=== PATIENT | male | born 1955 | race Caucasian/White ===

== ENCOUNTER → 2016-08-11 | Outpatient (CLI) | payer OTHER ==
[~2016-08-11] MED LIST: /CLON1TA; /ESOM40CA; ACTO45TA; ASPI81TA85 PO; ATOR40TA PO; CLON-412 PO; CLON0.5T PO; FARX1TAB2 PO; GABA600T PO; GLUC1000; HYDROCODONE; JANU100T PO; LIDO5DIS; LIDO5DIS36 TD; LOTR10CA2 PO; LOTREL; METF1000 PO; NEUR600T; NEXI40GR PO; SOMA350T; SOMA350T PO; VICO5TAB16 PO; ZOCO20TA; ZOCO40TA; ZOLO50TA; ZOLO50TA PO
[2016-08-11 10:15] LABS: INR 0.98
[2016-08-11 10:16] LABS: MEAN CORPUSCULAR HEMOGLOBIN 29.1 pg (27.0-33.0); MEAN CORPUSCULAR HGB CONC 33.8 g/dl (32.0-36.5); WHITE BLOOD COUNT 3.9 K/mm3 (4.0-10.0)
--- NOTE | 2016-08-11 10:18 | REP ---
Clinical: Hypertension with high risk factors. Technique: PA and lateral. Comparison: 12/17/2012. Findings: Mediastinum and cardiac silhouette are within normal limits and stable. Lung padilla demonstrate mild chronic stable changes without acute consolidation, effusion, or pneumothorax. Skeletal structures are intact. Impression: Stable chest x-ray. No acute cardiopulmonary process appreciated. Signed by Channing Fu MD 08/11/2016 10:09 A
[2016-08-11 10:38] LABS: ALBUMIN 4.4 GM/DL (3.2-5.2); ALBUMIN/GLOBULIN RATIO 1.63 (1.00-1.93); ALKALINE PHOSPHATASE 81 U/L (45-117); ALT/SGPT 33 U/L (12-78); ANION GAP 5 MEQ/L (8-16); AST/SGOT 18 U/L (15-37); BILIRUBIN,TOTAL 0.4 MG/DL (0.2-1.0); BLOOD UREA NITROGEN 21 MG/DL (7-18); CALCIUM LEVEL 9.4 MG/DL (8.5-10.1); CARBON DIOXIDE LEVEL 29 MEQ/L (21-32); CHLORIDE LEVEL 106 MEQ/L (98-107); CREATININE FOR GFR 0.99 MG/DL (0.70-1.30); GLOMERULAR FILTRATION RATE > 60.0 (>56); GLUCOSE, FASTING 87 MG/DL (70-105); POTASSIUM SERUM 4.4 MEQ/L (3.5-5.1); SODIUM LEVEL 140 MEQ/L (136-145); TOTAL PROTEIN 7.1 GM/DL (6.4-8.2)
--- NOTE | 2016-08-11 19:56 | ECGEPIP ---
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 Electronically Signed On 08-11-2016 19:55:45 EDT by Tony Kenney
--- NOTE | 2016-08-15 19:10 | HPE ---
DATE OF PLANNED ADMISSION: 08/17/2016 ATTENDING PHYSICIAN: Samuel Reinoso MD CHIEF COMPLAINT: Right hip pain and stiffness. HISTORY: Michael is a pleasant 61-year-old male with progressively worsening right hip pain and stiffness. He has failed to improve with conservative management. He has elected for surgery for his continued symptoms with weightbearing activities and activities of daily living. He has consented for a right total hip arthroplasty by Dr. Reinoso. Medical optimization pending with Dr. Jimenez and is not present for review today. CURRENT MEDICATIONS: - atorvastatin 40 mg daily - baby aspirin daily - clonazepam 0.5 mg at bedtime - clonidine 0.1 mg twice daily - Farxiga 5 mg one by mouth every morning - Flonase 2 sprays 2 sprays in each nostril daily - gabapentin 600 mg 2 tablets three times daily - Januvia 100 mg daily - Lotrel 10/40 mg daily - Lidoderm patches 5%, apply 1 patch per 12 hours then leave off for 12 hours as needed - metformin 1000 mg twice daily - Nexium 40 mg daily - soma 350 mg twice daily as needed - Vicodin 5/300 mg every 6 hours as needed for pain - Zoloft 50 mg daily ALLERGIES: BACLOFEN, LYRICA, PENICILLIN, KEFLEX. MEDICAL HISTORY: Hyperlipidemia. Hypertension. Diabetes. Gastroesophageal reflux. Chronic neck pain. SURGICAL HISTORY: Neck fusion. Shoulder surgery. SOCIAL HISTORY: The patient denies tobacco use. He denies alcohol use. REVIEW OF SYSTEMS: The patient denies fever, chills, nausea, vomiting or diarrhea. He denies chest pain, shortness of breath, cough or headache. He denies any recent upper respiratory or urinary tract infection symptoms. He does have persistent right hip pain with weightbearing activities. PHYSICAL EXAMINATION: Well-nourished, well-developed male in no apparent distress. Musculoskeletal: Inspection of the right hip reveals no gross abnormalities. The skin is intact. The patient has essentially normal motion of the hip with 5 out of 5 strength of the right lower extremity. There is hip irritability elicited with range of motion. His calf is soft, nontender to palpation with no palpable cords noted. His pedal pulses are palpable. Neck: Supple without lymphadenopathy or jugular venous distention. Lungs: Clear to auscultation bilaterally. Heart: Regular rate and rhythm. Abdomen: Bowel sounds are present. Abdomen is soft and nontender to palpation. Vital signs: Height 73 inches, weight 244 pounds, temperature 98.7, blood pressure 133/93. Heart rate 81, respirations 16. LABORATORY DATA: Chest x-ray: Stable chest x-ray. No acute cardiopulmonary process appreciated. EKG: Sinus rhythm. Urinalysis: Positive for only 3+ glucose. Urine culture shows no growth. Comprehensive metabolic profile: Fasting glucose 84, BUN elevated at 21, creatinine for GFR 0.99. GFR greater than 60. Sodium 140, potassium 4.4, chloride 106, carbon dioxide 29, anion gap decreased at 5, calcium 9.4, AST 18, ALT 81, total bilirubin 0.4, total protein 7.1, albumin 4.4, albumin globulin ratio 1.63. Complete blood count: WBC decreased at 3.9, RBC 5.11, hemoglobin 14.9, hematocrit 44, platelets 191, erythrocyte sedimentation rate 3, prothrombin time 13.1, INR 0.98. Nasal and sinus culture shows normal jojo. DIAGNOSIS: Symptomatic osteoarthritis of the right hip with x-rays notable for end-stage degenerative changes. PLAN: The patient has consented for a right total hip arthroplasty by Dr. Reinoso. [facility]ALTHLamber[facility]
== END ==
LOC: M ADMPAT 08:58
PROVIDERS: ATTEND Orthopaedic Surgery
DX: M16.11 Unilateral primary osteoarthritis, right hip (principal)

== ENCOUNTER 2016-08-17 10:36 | Inpatient (IN) | payer OTHER ==
[2016-08-11 09:50] VITALS: BP 132/74
[~2016-08-17] VITALS: Ht 185.4 cm; Wt 108.9 kg
[~2016-08-17 10:36] MED LIST changes: +CLINDAMYCIN INJ 900MG/6ML VIAL As Ordered ONE
[2016-08-17] MEDS ORDERED: LR 1,000 ML IV SCH ×2 (10:45→15:30)
[2016-08-17] MEDS ORDERED: VANCOMYCIN HCL 1,000 MG, VIAL MATE ADAPTER 1 EACH in D5W 250 ML IV ONE ×2 (11:00→23:00)
[2016-08-17] MEDS ORDERED: LR 1,000 ML IV ONE (11:00)
[2016-08-17] MEDS ORDERED: ACETAMINOPHEN 500 MG TAB PO ONE (11:00)
[2016-08-17] MEDS ORDERED: LIDOCAINE 2% INJ 100 MG/5 ML SDV (FOR ANES.) As Ordered ONE (13:19)
[2016-08-17] MEDS ORDERED: fentaNYL 100 MCG/2 ML INJECTION (J3010) As Ordered ONE (13:19)
[2016-08-17] MEDS ORDERED: MIDAZOLAM INJ 2 MG/2 ML VIAL (J2250) As Ordered ONE (13:19)
[2016-08-17] MEDS ORDERED: ONDANSETRON 4MG/2ML VIAL (J2405) As Ordered ONE ×2 (13:19→15:16)
[2016-08-17] MEDS ORDERED: PROPOFOL 200 MG/20 ML VIAL As Ordered ONE ×2 (13:19→14:58)
[2016-08-17] MEDS ORDERED: dexameTHASONE 4 MG/ML 1ML VIAL (J1100) As Ordered ONE (13:19)
[2016-08-17] MEDS ORDERED: HYDROmorphone HCL 2 MG/ML 1ML VIAL (J1170) As Ordered ONE (13:22)
[2016-08-17] MEDS ORDERED: GLYCOPYRROLATE INJ 0.2 MG/ML 2 ML VIAL As Ordered ONE (13:30)
[2016-08-17] MEDS ORDERED: NEOSTIGMINE 1MG/ML 5 ML SYRINGE (J2710) As Ordered ONE (13:30)
[2016-08-17] MEDS ORDERED: MORPHINE 1MG/ML IN 0.9% NACL 100ML IV BAG As Ordered ONE (15:26)
[2016-08-17] MEDS ORDERED: MEPERIDINE INJ 25 MG/ML VIAL (J2175) IV PRN (15:30)
[2016-08-17] MEDS ORDERED: NALOXONE INJ 0.4 MG/1 ML VIAL (J2310) IV PRN (15:30)
[2016-08-17] MEDS ORDERED: ONDANSETRON 4MG/2ML VIAL (J2405) IV PRN ×2 (15:30)
[2016-08-17] MEDS ORDERED: MORPHINE 1MG/ML IN 0.9% NACL 100ML IV BAG IV PRN (15:30)
[2016-08-17] MEDS ORDERED: METOCLOPRAMIDE INJ 10MG/2ML VIAL (J2765) IV PRN (15:30)
[2016-08-17] MEDS ORDERED: diphenhydrAMINE INJ 50MG/ML VIAL (J1200) IV PRN (15:30)
[2016-08-17] MEDS ORDERED: EPIDURAL/PCA KEYS XX PRN (15:30)
[2016-08-17] MEDS ORDERED: ACETAMINOPHEN TAB 650MG DOSE (2X325MG) PO PRN (15:30)
[2016-08-17] MEDS ORDERED: NALBUPHINE HCL 10 MG/ML AMP (J2300) IV PRN (15:30)
[2016-08-17] MEDS: fentaNYL 100 MCG/2 ML INJECTION (J3010) IV PRN ×8 (15:30→16:05)
[2016-08-17] MEDS ORDERED: PERCOCET 5MG/325MG TAB PO PRN (15:30)
[2016-08-17] MEDS ORDERED: FLEET ENEMA PR PRN (15:30)
[2016-08-17] MEDS ORDERED: GLUCOSE 4 GM CHEW TABLET PO PRN (16:15)
[2016-08-17] MEDS ORDERED: DEXTROSE 50% 50 ML SYRINGE IV PRN (16:15)
[2016-08-17] MEDS ORDERED: GLUCAGON FOR INJ 1 MG VIAL (J1610) SC PRN (16:15)
[2016-08-17] MEDS ORDERED: MEPERIDINE INJ 25 MG/ML VIAL (J2175) As Ordered ONE (16:31)
[2016-08-17 17:00] VITALS: BP 130/82
[2016-08-17] MEDS ORDERED: WARFARIN SOD 5 MG TAB PO SCH (17:00)
[2016-08-17 17:30] VITALS: BP 135/79
[2016-08-17] MEDS: HumaLOG INSULIN (NovoLOG) PER UNIT SC SCH ×2 (17:30→21:00)
[2016-08-17] MEDS: LR 1,000 ML IV SCH (18:02)
[2016-08-17 18:30] VITALS: BP 136/82
[2016-08-17 18:34] VITALS: O2SAT 99
--- NOTE | 2016-08-17 18:59 | CR.PDOC ---
[facility] Consultation Consultation HOSPITALIST CONSULT NOTE Date of consult: 08/17/2016 Referring Provider: Dr. Lund PCP: Dr. Jimenez Reason for Consult: For management of chronic medical issues HPI: 61-year-old male with diabetes mellitus type 2, hypertension, hyperlipidemia, GERD, chronic neck pain who underwent right total hip arthroplasty today with Dr. Lund. The patient is seen postoperatively in recovery. He is overall doing well, but he reports that he initially had some nausea, which was relieved with Zofran. He also states that initially he had a lot of pain from the surgery, but he is now on a MATERIAL MOVERS and is much more comfortable. He denies any chest pain or difficulty breathing. Past medical history: Diabetes mellitus type 2, hypertension, hyperlipidemia, GERD, chronic neck pain Past surgical history: neck fusion 3, shoulder surgery, wrist surgery, hernia repair 2, right total hip arthroplasty Family history: CAD, back trouble, diabetes mellitus, hypertension Social history: Patient denies ever having smoked cigarettes. He also does not drink. Allergies: Cephalosporins, penicillins, sulfa Review of systems: General: Negative for fever and chills Eyes: Negative for vision changes and ocular discharge ENT: Negative for sore throat and nose bleed Cardiovascular: Negative for chest pain and palpitations Respiratory: Negative for cough and shortness of breath GI: Positive for nausea, negative for vomiting, diarrhea, constipation Musculoskeletal: Positive for chronic neck and back pain Skin: Negative for rash Neuro: Negative for headache, dizziness, numbness, tingling Psych: Negative for depression and suicidal ideation Endocrine: Negative for polyuria : Negative for dysuria Heme: Negative for bleeding Home meds: See below Physical exam: Vital signs: Vital Signs Date Time Temp Pulse Resp B/P (MAP) Pulse Ox O2 Delivery O2 Flow Rate FiO2 08/17/16 18:34 99 Nasal Cannula 08/17/16 16:45 97.7 99 16 140/76 (97) 2 Gen.: awake, alert, no acute distress Eyes: Extraocular movements intact, normal sclera ENT: Moist mucous membranes Cardiovascular: RRR, no murmurs rubs or gallops Lungs: clear to auscultation bilaterally, no rales, rhonchi, or wheeze Abdomen: Soft, NT/ND, normal BS Extremities: Pedal pulses intact bilaterally Neuro: alert and oriented 3, normal speech, no focal deficits Psych: Normal mood with congruent affect Labs and radiology: Finger sticks are controlled Assessment and plan: 61-year-old male with diabetes mellitus type 2, hypertension, hyperlipidemia, GERD, chronic neck pain who underwent right total hip arthroplasty today with Dr. Lund. We've been consulted for medical management of chronic issues 1. Diabetes mellitus type 2: Holding patient's home metformin, Januvia, and fargixa. Sliding scale insulin while in-house. 2. Hypertension: Continue home clonidine and Lotrel. 3. Hyperlipidemia: Continue home statin. 4. Depression: Continue home Zoloft. 5. GERD: Continue home PPI. 6. Chronic neck pain: The patient is currently on a MATERIAL MOVERS postoperatively. I will defer all pain management to his primary orthopedic team. We are currently holding his home Soma and Lidoderm patch. 7. Osteoarthritis: Postoperative management as per his primary orthopedic team, including pain management. DVT prophylaxis: As per his surgical team; currently holding home aspirin given today's surgery Thank you for this consult. We will continue to follow along with you; Dr. Guerita Mane will assume coverage in the morning. Vital Signs/I&O Vital Signs Date Time Temp Pulse Resp B/P (MAP) Pulse Ox O2 Delivery O2 Flow Rate FiO2 08/17/16 18:34 99 Nasal Cannula 08/17/16 16:45 97.7 99 16 140/76 (97) 2 Laboratory Data Labs 24H Laboratory Tests 2 08/17/16 11:23: Bedside Glucose (Misc Panel) 113H 08/17/16 17:40: Bedside Glucose (Misc Panel) 134H CBC/BMP Laboratory Tests 08/17/16 11:03 Allergies Coded Allergies: Cephalosporins (Verified Allergy, Intermediate, HIVES, 06/24/12) Penicillins (Verified Allergy, Intermediate, HIVES, 06/24/12) Penicillins Cross Reactors (Verified Allergy, Intermediate, HIVES, 06/24/12) Sulfa Drugs (Verified Allergy, Unknown, 06/24/12) Sulfa Drugs Cross Reactors (Verified Allergy, Unknown, 06/24/12) Home Medications Scheduled (Lotrel 10-40 mg) 1 Cap Cap, 1 CAP PO QAM, (Reported) Aspirin (Aspir-81) 81 Mg Tab, 81 MG PO DAILY, #30 (Reported) Atorvastatin Calcium (Atorvastatin Calcium) 40 Mg Tab, 40 MG PO DAILY, (Reported ) Clonazepam (Clonazepam) 0.5 Mg Tab, 0.5 MG PO QHS, (Reported) Clonidine Hydrochloride (Clonidine HCl) 0.1 Mg Tab, 0.1 MG PO BID, (Reported) Dapagliflozin Propanediol (Farxiga) 10 Mg Tab, 5 MG PO QAM, (Reported) Esomeprazole Magnesium (Nexium) 40 Mg Gra, 40 MG PO QHS, (Reported) Gabapentin (Gabapentin) 600 Mg Tab, 1,200 MG PO TID, (Reported) 600mg 2 tabs tid Metformin Hydrochloride (Metformin HCl) 1,000 Mg Tab, 1,000 MG PO BID, (Reported ) Sertraline Hcl (Zoloft) 50 Mg Tab, 50 MG PO DAILY, (Reported) Sitagliptin Phosphate (Januvia) 100 Mg Tab, 100 MG PO DAILY, (Reported) Scheduled PRN Acetaminophen/Hydrocodone (VICODIN 5-300 mg) 1 Tab Tab, 1 TAB PO Q6H PRN for PAIN, (Reported) Carisoprodol (Soma) 350 Mg Tab, 350 MG PO BID PRN for PAIN, (Reported) Miscellaneous Medications Lidocaine (Lidoderm) 5 % Dis, 1 PATCH TD, (Reported) OSCAR ROSA Aug 17, 2016 18:59
--- NOTE | 2016-08-17 21:54 | RO ---
DATE OF PROCEDURE: 08/17/2016 PREPROCEDURE DIAGNOSIS: Right hip degenerative arthritis. POSTPROCEDURE DIAGNOSIS: Right hip degenerative arthritis. PROCEDURE: Right total hip arthroplasty using a 56 cup with a 40 mm neutral polyethylene liner with a +40 head and +5 neck, high offset stem, size 8 [place]; prosthesis made by [employer]. SURGEON: Dr. Samuel Reinoso TOBACCO STEMMER: Ms. Milly Moreno ANESTHESIA: General endotracheal tube anesthetic. ESTIMATED BLOOD LOSS: 250 mL. SPECIMENS: Femoral head. COMPLICATIONS: None. DESCRIPTION OF PROCEDURE: Antibiotics were given intravenously preoperatively and successful . Trevino catheter was placed and then he was placed in a lateral decubitus position. The Abbot hip positioner was utilized, well leg was well-padded, making sure we had no pressure on the peroneal nerve. Axillary roll was utilized. His right hip area was then prepped and draped in the usual sterile fashion. Then, after appropriate time-out, a longitudinal incision was made for a direct lateral approach to the hip. Bovie cautery used to coagulate crossing vessels. Tensor fascia divided in line with the skin incision. We then split the gluteus medius, the anterior one-third, posterior two-thirds junction and divided the underlying gluteus minimus and anterior hip capsule, carefully dissected off the proximal femur anteriorly and then we dislocated the hip and then placed the leg in a leg bag. Starter reamer was placed in the piriformis fossa followed by the canal finding reamer, then the lateralizing reamer, then a femoral neck osteotomy was performed using the guide to estimate our cut angle. We then began reaming up to a size #8 and then began broaching up to a size #8. It was a nice fit. We did not calcar plane, we just used the saw because he had fairly thick medial calcar. We then exposed the acetabulum, and he had large rim osteophytes, and he had a significant floor osteophyte noted as well. Thus, I deepened the cup first with a 48 mm reamer, then began sequentially increasing the diameter of the reamer up to a size 55. Trial 56 actually fit very nicely, and we used the extramedullary guide to help estimate our proper abduction and anteversion position. Thus, I elected to go with a 56 cup because the 56 trial fit so snugly. We copiously pulsatile lavage irrigated, made sure I removed all of the soft tissues. A labral excision 360 degrees was performed, and then we inserted the cup. Using the extramedullary alignment jig once again, irrigated, then placed the real polyethylene. For maximum stability, I used the size 40 head. large anterior and inferior osteophyte, and it was so large and proud that I thought it best to remove this to help remove any possible impinging osteophytes that may interfere with range of motion. Thus, I used a three-quarter inch curved osteotome to remove the inferior and the anterior osteophyte and then clean the area with a rongeur. Then, we exposed the proximal femur once again, replacing the leg back in the leg bag, irrigated copiously the intramedullary canal and then placed the real size #8 broach, followed by the high offset +5 neck and then the +40 head was placed. Then, we reduced the hip, and the hip position was excellent in terms of stability and overall alignment. He had great stability with flexion beyond 90 degrees, with adduction and internal rotation all the way up to about 70 without any evidence of dislocation and then in extension, external rotation, there was no posterior impingement and no camming anteriorly, and there was minimal telescoping. Thus, I felt that this would be the appropriate construct to use for him. Thus, I removed the trial broach and head and neck, copiously pulsatile lavage irrigated out the femoral canal once again, as well as the acetabulum and placed the real #8 high offset stem and then dried the trunnion, placed a #40 head and then irrigated the acetabulum and reduced the hip. Then, we very meticulously and anatomically closed the gluteus medius and anterior hip capsule back anatomically to the greater trochanter with several #1 interrupted PDS sutures. The vastus lateralis split was also closed. We then closed the gluteus medius back anatomically with interrupted #1 PDS sutures, irrigating between layers. Then, we closed the tensor fascia with a combination of two #1 PDS sutures distally to close the apex and then a running #1 Stratafix was used in the fascia. Irrigated again between layers, closed the deep subdermal tissues with interrupted #2-0 PDS sutures, skin was closed with naa, covered by Adaptic dry sterile bulky dressing. He was then carefully turned supine onto his bed, keeping his knees apart as best as possible. We then placed him in an abduction pillow brace after placing his thromboembolism deterrent (TITA) hose stocking and sequential stocking on his right leg and then he was awakened from general endotracheal tube anesthesia after having tolerated the procedure well, transferred to the recovery room in stable condition. There were no intraoperative complications.
[2016-08-17 22:00] VITALS: BP 142/85
[2016-08-17] MEDS: GABAPENTIN 300 MG CAP PO SCH (22:18)
[2016-08-17] MEDS: cloNIDine 0.1 MG TAB PO SCH (22:19)
[2016-08-17] MEDS: OMEPRAZOLE 20 MG CAP PO SCH (22:19)
[2016-08-17] MEDS: ATORVASTATIN 20 MG TAB PO SCH (22:19)
[2016-08-17] MEDS: clonazePAM 0.5 MG TAB PO SCH (22:19)
[2016-08-18 02:00] VITALS: BP 141/85
[2016-08-18] MEDS: LR 1,000 ML IV SCH (04:00)
[2016-08-18 06:16] LABS: BASO % 0.1 % (0.0-1.0); EOS % 0.3 % (0.0-3.0); LARGE UNSTAINED CELL # 0.1 K/mm3 (0.0-0.4); LARGE UNSTAINED CELL % 0.8 % (0.0-4.0); LYMPH # 0.6 K/mm3 (1.5-4.5); LYMPH % 6.3 % (24.0-44.0); MEAN CORPUSCULAR HEMOGLOBIN 29.3 pg (27.0-33.0); MEAN CORPUSCULAR HGB CONC 34.4 g/dl (32.0-36.5); MEAN CORPUSCULAR VOLUME 85.1 fl (80.0-96.0); MONO # 0.7 K/mm3 (0.0-0.8); MONO % 7.7 % (0.0-5.0); NEUTROPHILS # 7.2 K/mm3 (1.8-7.7); NEUTROPHILS % 84.9 % (36.0-66.0); PLATELET COUNT, AUTOMATED 199 k/mm3 (150-450); WHITE BLOOD COUNT 8.5 K/mm3 (4.0-10.0)
[2016-08-18 06:19] LABS: INR 1.17
[2016-08-18 06:29] LABS: ANION GAP 5 MEQ/L (8-16); BLOOD UREA NITROGEN 17 MG/DL (7-18); CALCIUM LEVEL 8.1 MG/DL (8.5-10.1); CARBON DIOXIDE LEVEL 30 MEQ/L (21-32); CHLORIDE LEVEL 103 MEQ/L (98-107); CREATININE FOR GFR 0.96 MG/DL (0.70-1.30); GLOMERULAR FILTRATION RATE > 60.0 (>56); GLUCOSE, FASTING 152 MG/DL (70-105); POTASSIUM SERUM 4.7 MEQ/L (3.5-5.1); SODIUM LEVEL 138 MEQ/L (136-145)
[2016-08-18] MEDS ORDERED: PERCOCET 5MG/325MG TAB PO PRN (06:30)
[2016-08-18] MEDS: HumaLOG INSULIN (NovoLOG) PER UNIT SC SCH ×4 (07:59→21:00)
[2016-08-18] MEDS: amLODIPine 10 MG TAB PO SCH (08:00)
[2016-08-18] MEDS: PERCOCET 5MG/325MG TAB PO PRN ×4 (08:00→21:38)
[2016-08-18] MEDS: MOM 30ML SUSPENSION UDC PO SCH (08:00)
[2016-08-18] MEDS: MIRALAX *UNIT DOSE* 17GM PACKET PO SCH (08:00)
[2016-08-18] MEDS: ONDANSETRON 4 MG TAB (S0181) PO PRN ×3 (08:01→16:54)
[2016-08-18] MEDS: GABAPENTIN 300 MG CAP PO SCH ×3 (08:01→21:39)
[2016-08-18] MEDS: SERTRALINE HCL 50 MG TAB PO SCH (08:01)
[2016-08-18] MEDS: SENOKOT S TAB PO SCH ×2 (08:01→21:37)
[2016-08-18] MEDS: BENAZEPRIL 20 MG TAB PO SCH (08:01)
[2016-08-18] MEDS: cloNIDine 0.1 MG TAB PO SCH ×2 (08:01→21:37)
[2016-08-18 10:00] VITALS: BP 141/72
--- NOTE | 2016-08-18 10:41 | REP ---
RIGHT HIP, TWO VIEWS: HISTORY: Hip replacement. COMPARISON: 03/06/2016 The patient is status post right total hip replacement. There is no acute fracture or dislocation. Surgical naa and subcutaneous air are present in the overlying tissue. IMPRESSION: The patient is status post right total hip replacement. There is anatomic alignment. Signed by Michele Hall MD 08/18/2016 10:47 A
--- NOTE | 2016-08-18 11:18 | IPNPDOC ---
Subjective Date Seen The patient was seen on 08/18/16. Subjective Chief Complaint/HPI The patient is a 61-year-old male admitted with a reason for visit of Right Hip Arthritis. Events since last encounter complaining of nausea since this morning after getting his pain medications, no vomiting , no chest pain or SOB , no abdominal pain , no diarrhea, no fever or chills, Objective Physical Examination General Exam: Positive: Alert, Cooperative, No Acute Distress Eye Exam: Positive: PERRLA, Conjunctiva & lids normal, EOMI, Negative: Sclera icteric ENT Exam: Positive: Atraumatic, Mucous membr. moist/pink, Pharynx Normal Neck Exam: Positive: Supple, Negative: JVD, thyromegaly Chest Exam: Positive: Clear to auscultation, Normal air movement Heart Exam: Positive: Rate Normal, Regular Rhythm, Normal S1, Normal S2, Negative: Murmurs, Rubs Abdomen Exam: Positive: Normal bowel sounds, Soft, Negative: Tenderness, Hepatospenomegaly Extremity Exam: Positive: Normal pulses, Negative: Clubbing, Cyanosis, Edema Skin Exam: Positive: Nl turgor and temperature, Negative: Rash, Breakdown Assessment /Plan Problems (1) S/P total hip arthroplasty Status: Acute Problem Text: Had elective right total hip arthroplasty for advanced osteoarthritis. pain control and dvt prophylaxis as per ortho protocol. (2) Diabetes Status: Chronic (3) Hypertension Status: Chronic (4) Hyperlipidemia Status: Chronic (5) GERD (gastroesophageal reflux disease) Status: Chronic Plan/VTE VTE Prophylaxis Ordered?: Yes VS, I&O, 24H, Fishbone Vital Signs/I&O Vital Signs Date Time Temp Pulse Resp B/P (MAP) Pulse Ox O2 Delivery O2 Flow Rate FiO2 08/18/16 10:00 99.5 88 14 141/72 (95) 94 Room Air 08/18/16 02:00 2.0 I&O- Last 24 Hours up to 6 AM 08/18/16 06:00 Intake Total 3170 ml Output Total 1175 ml Balance 1995 ml Laboratory Data 24H LABS Laboratory Tests 2 08/17/16 11:23: Bedside Glucose (Misc Panel) 113H 08/17/16 17:40: Bedside Glucose (Misc Panel) 134H 08/17/16 20:09: Bedside Glucose (Misc Panel) 154H 08/18/16 05:58: White Blood Count 8.5, Red Blood Count 4.20L, Hemoglobin 12.3L, Hematocrit 35.7L , Mean Corpuscular Volume 85.1, Mean Corpuscular Hemoglobin 29.3, Mean Corpuscular Hemoglobin Concent 34.4, Red Cell Distribution Width 13.0, Platelet Count 199, Neutrophils (%) (Auto) 84.9H, Lymphocytes (%) (Auto) 6.3L, Monocytes (%) (Auto) 7.7H, Eosinophils (%) (Auto) 0.3, Basophils (%) (Auto) 0.1, Neutrophils # (Auto) 7.2, Lymphocytes # (Auto) 0.6L, Monocytes # (Auto) 0.7, Eosinophils # (Auto) 0.0, Basophils # (Auto) 0.0, Large Unclassified Cells % 0.8 , Large Unclassified Cells # 0.1, Prothrombin Time 15.0H, Prothromb Time International Ratio 1.17, Anion Gap 5L, Glomerular Filtration Rate > 60.0, Blood Urea Nitrogen 17, Creatinine 0.96, Sodium Level 138, Potassium Level 4.7, Chloride Level 103, Carbon Dioxide Level 30, Calcium Level 8.1L, Magnesium Level 2.0 CBC/BMP Laboratory Tests 08/18/16 05:58 Red Blood Count 4.20 L, Mean Corpuscular Volume 85.1, Mean Corpuscular Hemoglobin 29.3, Mean Corpuscular Hemoglobin Concent 34.4, Red Cell Distribution Width 13.0, Neutrophils (%) (Auto) 84.9 H, Lymphocytes (%) (Auto) 6.3 L, Monocytes (%) (Auto) 7.7 H, Eosinophils (%) (Auto) 0.3, Basophils (%) ( Auto) 0.1, Neutrophils # (Auto) 7.2, Lymphocytes # (Auto) 0.6 L, Monocytes # ( Auto) 0.7, Eosinophils # (Auto) 0.0, Basophils # (Auto) 0.0, Calcium Level 8.1 L NIDIA PADILLA MD Aug 18, 2016 11:18
[2016-08-18 14:00] VITALS: BP 130/70
[2016-08-18] MEDS ORDERED: WARFARIN SOD 5 MG TAB PO SCH (17:00)
[2016-08-18] MEDS: ATORVASTATIN 20 MG TAB PO SCH (21:37)
[2016-08-18] MEDS: OMEPRAZOLE 20 MG CAP PO SCH (21:38)
[2016-08-18] MEDS: clonazePAM 0.5 MG TAB PO SCH (21:38)
[2016-08-18 22:00] VITALS: BP 114/60
[2016-08-19] MEDS: PERCOCET 5MG/325MG TAB PO PRN ×2 (04:34→11:22)
[2016-08-19 06:00] VITALS: BP 115/56
[2016-08-19 06:15] LABS: BASO % 0.1 % (0.0-1.0); EOS % 0.4 % (0.0-3.0); LARGE UNSTAINED CELL # 0.1 K/mm3 (0.0-0.4); LARGE UNSTAINED CELL % 1.1 % (0.0-4.0); LYMPH # 0.9 K/mm3 (1.5-4.5); LYMPH % 12.8 % (24.0-44.0); MEAN CORPUSCULAR HEMOGLOBIN 28.9 pg (27.0-33.0); MEAN CORPUSCULAR HGB CONC 33.6 g/dl (32.0-36.5); MEAN CORPUSCULAR VOLUME 86.2 fl (80.0-96.0); MONO # 0.5 K/mm3 (0.0-0.8); MONO % 7.8 % (0.0-5.0); NEUTROPHILS # 4.9 K/mm3 (1.8-7.7); NEUTROPHILS % 77.9 % (36.0-66.0); PLATELET COUNT, AUTOMATED 174 k/mm3 (150-450); RED CELL DISTRIBUTION WIDTH 13.2 % (11.5-14.5); WHITE BLOOD COUNT 6.3 K/mm3 (4.0-10.0)
[2016-08-19 06:17] LABS: INR 1.73
[2016-08-19 06:24] LABS: ANION GAP 2 MEQ/L (8-16); BLOOD UREA NITROGEN 17 MG/DL (7-18); CALCIUM LEVEL 8.3 MG/DL (8.5-10.1); CARBON DIOXIDE LEVEL 33 MEQ/L (21-32); CHLORIDE LEVEL 100 MEQ/L (98-107); CREATININE FOR GFR 0.99 MG/DL (0.70-1.30); GLOMERULAR FILTRATION RATE > 60.0 (>56); GLUCOSE, FASTING 139 MG/DL (70-105); MAGNESIUM LEVEL 2.2 MG/DL (1.8-2.4); POTASSIUM SERUM 3.8 MEQ/L (3.5-5.1); SODIUM LEVEL 135 MEQ/L (136-145)
[2016-08-19] MEDS ORDERED: MORPHINE 15 MG SA TAB PO ONE (06:45)
--- NOTE | 2016-08-19 07:09 | IPNPDOC ---
Subjective Date Seen The patient was seen on 08/19/16. Subjective Chief Complaint/HPI The patient is a 61-year-old male admitted with a reason for visit of Right Hip Arthritis. Events since last encounter patient did not offer any complaints today . Objective Physical Examination General Exam: Positive: Alert, Cooperative, No Acute Distress Eye Exam: Positive: PERRLA, Conjunctiva & lids normal, EOMI, Negative: Sclera icteric ENT Exam: Positive: Atraumatic, Mucous membr. moist/pink, Pharynx Normal Neck Exam: Positive: Supple, Negative: JVD, thyromegaly Chest Exam: Positive: Clear to auscultation, Normal air movement Heart Exam: Positive: Rate Normal, Regular Rhythm, Normal S1, Normal S2, Negative: Murmurs, Rubs Abdomen Exam: Positive: Normal bowel sounds, Soft, Negative: Tenderness, Hepatospenomegaly Extremity Exam: Positive: Normal pulses, Negative: Clubbing, Cyanosis, Edema Skin Exam: Positive: Nl turgor and temperature, Negative: Rash, Breakdown Assessment /Plan Problems (1) S/P total hip arthroplasty Status: Acute Problem Text: Had elective right total hip arthroplasty for advanced osteoarthritis. pain control and dvt prophylaxis as per ortho protocol. (2) Diabetes Status: Chronic Problem Text: continue insulin as per sliding scale. (3) Hypertension Status: Chronic Problem Text: continue amlodipine and benzapril with hold parameters. (4) Hyperlipidemia Status: Chronic (5) GERD (gastroesophageal reflux disease) Status: Chronic Problem Text: continue PPI Plan/VTE VTE Prophylaxis Ordered?: Yes VS, I&O, 24H, Fishbone Vital Signs/I&O Vital Signs Date Time Temp Pulse Resp B/P (MAP) Pulse Ox O2 Delivery O2 Flow Rate FiO2 08/19/16 06:27 18 08/19/16 06:00 100.1 92 115/56 (75) 90 Room Air 08/18/16 02:00 2.0 I&O- Last 24 Hours up to 6 AM 08/19/16 06:00 Intake Total 2160 ml Output Total 150 ml Balance 2010 ml Laboratory Data 24H LABS Laboratory Tests 2 08/18/16 11:38: Bedside Glucose (Misc Panel) 153H 08/18/16 16:45: Bedside Glucose (Misc Panel) 164H 08/18/16 20:06: Bedside Glucose (Misc Panel) 148H 08/19/16 05:52: White Blood Count 6.3, Red Blood Count 3.75L, Hemoglobin 10.9L, Hematocrit 32.3L , Mean Corpuscular Volume 86.2, Mean Corpuscular Hemoglobin 28.9, Mean Corpuscular Hemoglobin Concent 33.6, Red Cell Distribution Width 13.2, Platelet Count 174, Neutrophils (%) (Auto) 77.9H, Lymphocytes (%) (Auto) 12.8L, Monocytes (%) (Auto) 7.8H, Eosinophils (%) (Auto) 0.4, Basophils (%) (Auto) 0.1 , Neutrophils # (Auto) 4.9, Lymphocytes # (Auto) 0.9L, Monocytes # (Auto) 0.5, Eosinophils # (Auto) 0.0, Basophils # (Auto) 0.0, Large Unclassified Cells % 1.1 , Large Unclassified Cells # 0.1, Prothrombin Time 20.3H, Prothromb Time International Ratio 1.73, Anion Gap 2L, Glomerular Filtration Rate > 60.0, Blood Urea Nitrogen 17, Creatinine 0.99, Sodium Level 135L, Potassium Level 3.8 , Chloride Level 100, Carbon Dioxide Level 33H, Calcium Level 8.3L, Magnesium Level 2.2 CBC/BMP Laboratory Tests 08/19/16 05:52 Red Blood Count 3.75 L, Mean Corpuscular Volume 86.2, Mean Corpuscular Hemoglobin 28.9, Mean Corpuscular Hemoglobin Concent 33.6, Red Cell Distribution Width 13.2, Neutrophils (%) (Auto) 77.9 H, Lymphocytes (%) (Auto) 12.8 L, Monocytes (%) (Auto) 7.8 H, Eosinophils (%) (Auto) 0.4, Basophils (%) ( Auto) 0.1, Neutrophils # (Auto) 4.9, Lymphocytes # (Auto) 0.9 L, Monocytes # ( Auto) 0.5, Eosinophils # (Auto) 0.0, Basophils # (Auto) 0.0, Calcium Level 8.3 L NIDIA PADILLA MD Aug 19, 2016 07:09
[2016-08-19] MEDS ORDERED: MORP15TASA PO (08:10)
[2016-08-19] MEDS ORDERED: PERC5TAB6 PO (08:10)
[2016-08-19] MEDS ORDERED: COUM2.5T11 PO (08:10)
[2016-08-19 08:20] VITALS: BP 127/73
[2016-08-19] MEDS: SENOKOT S TAB PO SCH (09:10)
[2016-08-19] MEDS: SERTRALINE HCL 50 MG TAB PO SCH (09:10)
[2016-08-19] MEDS: cloNIDine 0.1 MG TAB PO SCH (09:11)
[2016-08-19 09:12] VITALS: BP 127/73
[2016-08-19] MEDS: amLODIPine 10 MG TAB PO SCH (09:12)
[2016-08-19] MEDS: BENAZEPRIL 20 MG TAB PO SCH (09:12)
[2016-08-19] MEDS: MIRALAX *UNIT DOSE* 17GM PACKET PO SCH (09:13)
[2016-08-19] MEDS: MOM 30ML SUSPENSION UDC PO SCH (09:13)
[2016-08-19] MEDS: GABAPENTIN 300 MG CAP PO SCH (09:13)
[2016-08-19] MEDS: HumaLOG INSULIN (NovoLOG) PER UNIT SC SCH (09:14)
--- NOTE | 2016-08-23 19:26 | DSES ---
DATE OF ADMISSION: 08/17/2016 DATE OF DISCHARGE: 08/19/2016 ATTENDING PHYSICIAN: Dr. Reinoso ADMITTING DIAGNOSIS: Right hip degenerative osteoarthritis. OTHER DIAGNOSES: 1. Hyperlipidemia. 2. Hypertension. 3. Diabetes. 4. Gastroesophageal reflux disease. 5. Neck pain. DISCHARGE DIAGNOSIS: Right hip degenerative osteoarthritis status post right total hip arthroplasty. HISTORY: Patient is a 61-year-old male with continuing right hip pain and stiffness. He failed to improve with conservative measures, so he consented for an elective right total hip arthroplasty with Dr. Reinoso. OPERATION PERFORMED: Right total hip arthroplasty. HOSPITAL COURSE: The patient underwent a right total hip arthroplasty under general anesthesia, which was uneventful. His hospital course was without complication and he was up with physical therapy per their protocol, weightbearing as tolerated on the right lower extremity. He was discharged on oral pain medications and will resume his preoperative medications and diet. He will take Coumadin and use his thromboembolic deterrent stockings for 30 days postoperatively to prevent deep venous thrombosis. He will follow up in our office in approximately 12-14 days for a wound check and staple removal. He is encouraged to contact our office sooner if there is any increased pain, drainage, bleeding, redness, numbness or tingling in his leg, fever greater than 101 degrees, or any other concerns. Please see his medical record for additional details.
== END 2016-08-19 12:07 | disposition home health service (06) | DRG 470 ==
LOC: M OR 10:36 → M MS5PR 17:00
PROVIDERS: ADMIT Orthopaedic Surgery; ATTEND Orthopaedic Surgery
PROC: 0SR90JZ Replacement of Right Hip Joint with Synthetic Substitute, Open Approach (ICD-10-PCS; principal; 2016-08-17 12:50)
DX: M16.11 Unilateral primary osteoarthritis, right hip (principal); E11.9 Type 2 diabetes mellitus without complications; I10 Essential (primary) hypertension; E78.5 Hyperlipidemia, unspecified; K21.9 Gastro-esophageal reflux disease without esophagitis; M54.2 Cervicalgia; Z88.0 Allergy status to penicillin; Z88.2 Allergy status to sulfonamides; Z79.82 Long term (current) use of aspirin; Z79.899 Other long term (current) drug therapy

== ENCOUNTER → 2016-09-04 | Outpatient (REF) | payer OTHER ==
[~2016-09-04] MED LIST changes: -CLINDAMYCIN INJ 900MG/6ML VIAL As Ordered ONE; +COUM2.5T11 PO; +MORP15TASA PO; +PERC5TAB6 PO
[2016-09-04 14:52] LABS: INR 1.52
== END ==
LOC: M LAB REF 13:47
PROVIDERS: ATTEND Nurse Practitioner Family
DX: Z79.01 Long term (current) use of anticoagulants (principal)

== ENCOUNTER 2017-05-28 08:37 | Observation (INO) | payer OTHER ==
[2017-05-28] MEDS: cloNIDine 0.1 MG TAB PO ×2 (09:00→21:04)
[2017-05-28] MEDS: CARISOPRODOL 350 MG TAB PO ×2 (09:00→21:05)
[2017-05-28 09:23] LABS: BASO % 0.2 % (0.0-1.0); EOS # 0.1 10^3/uL (0.0-0.50); EOS % 0.7 % (0.0-3.0); HEMATOCRIT 46.2 % (42.0-52.0); HEMOGLOBIN 15.3 g/dl (14.0-18.0); IMMATURE GRANULOCYTE % 0.2 % (0-3.0); LYMPH # 0.9 10^3/uL (1.5-4.5); LYMPH % 11.1 % (24.0-44.0); MEAN CORPUSCULAR HEMOGLOBIN 27.5 pg (27.0-33.0); MEAN CORPUSCULAR HGB CONC 33.1 g/dl (32.0-36.5); MEAN CORPUSCULAR VOLUME 83.1 fl (80.0-96.0); MONO # 0.6 10^3/uL (0.0-0.8); MONO % 7.1 % (0.0-5.0); NEUTROPHILS # 6.9 10^3/uL (1.8-7.7); NEUTROPHILS % 80.7 % (36.0-66.0); PLATELET COUNT, AUTOMATED 223 10^3/uL (150-450); RED BLOOD COUNT 5.56 10^6/uL (4.30-6.10); WHITE BLOOD COUNT 8.5 10^3/uL (4.0-10.0)
[2017-05-28] MEDS: MORPHINE 2 MG/ML 1ML SYRINGE (J2270) IV (09:28)
[2017-05-28] MEDS: CLINDAMYCIN 900 MG in APPROPRIATE DILUENT 1 EA IV (09:28)
[2017-05-28 09:36] LABS: PROTHROMBIN TIME 13.3 SECONDS (12.4-14.5)
[2017-05-28] MEDS ORDERED: ISOVUE-370 76% 100ML VIAL (Q9967) As Ordered (09:45)
[2017-05-28 09:47] LABS: ANION GAP 6 MEQ/L (8-16); BLOOD UREA NITROGEN 17 MG/DL (7-18); CALCIUM LEVEL 9.1 MG/DL (8.8-10.2); CARBON DIOXIDE LEVEL 28 MEQ/L (21-32); CHLORIDE LEVEL 105 MEQ/L (98-107); CREATININE FOR GFR 0.91 MG/DL (0.70-1.30); GLOMERULAR FILTRATION RATE > 60.0 (>49); GLUCOSE, FASTING 96 MG/DL (70-100); SODIUM LEVEL 139 MEQ/L (136-145)
[2017-05-28] MEDS: NS 1,000 ML IV (10:42)
[2017-05-28] MEDS: MORPHINE 4 MG/ML 1ML VIAL (J2270) IV (10:48)
[2017-05-28] MEDS ORDERED: MIDAZOLAM INJ 2 MG/2 ML VIAL (J2250) As Ordered (11:24)
[2017-05-28] MEDS ORDERED: PROPOFOL 200 MG/20 ML VIAL As Ordered (11:25)
[2017-05-28] MEDS ORDERED: fentaNYL 100 MCG/2 ML INJECTION (J3010) As Ordered ×2 (11:25→12:15)
[2017-05-28] MEDS ORDERED: LIDOCAINE 2% INJ 100 MG/5 ML SYRINGE As Ordered (11:26)
[2017-05-28] MEDS: MEPIVACAINE HCL 3 % 1.7 ML DENTAL CARTRIDGE (CARBOCAINE) (J0670) As Ordered (12:41)
[2017-05-28] MEDS ORDERED: PHENYLephrine HCL 500 MCG/5 ML (100MCG/ML) SYRINGE (J2370) As Ordered (12:56)
[2017-05-28] MEDS ORDERED: GLYCOPYRROLATE INJ 0.2 MG/ML 2 ML VIAL As Ordered (12:58)
[2017-05-28] MEDS ORDERED: NEOSTIGMINE 10 MG/10 ML VIAL (J2710) As Ordered (12:59)
[2017-05-28] MEDS: LIDOCAINE 2% W/ EPINEPHRINE 1.7 ML DENTAL INJ As Ordered (13:00)
[2017-05-28] MEDS ORDERED: KETOROLAC 60 MG/2 ML VIAL (J1885) As Ordered (13:12)
[2017-05-28] MEDS ORDERED: METOCLOPRAMIDE INJ 10MG/2ML VIAL (J2765) As Ordered (13:25)
[2017-05-28] MEDS: LR 1,000 ML IV (14:00)
[2017-05-28] MEDS ORDERED: PERCOCET 5MG/325MG TAB PO (14:00)
[2017-05-28] MEDS ORDERED: fentaNYL 100 MCG/2 ML INJECTION (J3010) IV (14:00)
[2017-05-28] MEDS ORDERED: METOCLOPRAMIDE INJ 10MG/2ML VIAL (J2765) IV (14:00)
[2017-05-28] MEDS ORDERED: HYDROmorphone HCL 1 MG/ML SYRINGE (J1170) IV (14:00)
[2017-05-28] MEDS: GABAPENTIN 400 MG CAP PO ×2 (15:29→21:01)
[2017-05-28] MEDS: CHLORHEXIDINE ORAL RINSE 0.12%/15ML 120ML BOTTLE SSP ×2 (15:29→21:06)
[2017-05-28] MEDS: PERCOCET 5MG/325MG TAB PO ×2 (16:00→21:03)
[2017-05-28] MEDS: MOXIFLOXACIN HCL 400 MG in APPROPRIATE DILUENT 1 EA IV (18:00)
[2017-05-28] MEDS: ATORVASTATIN 20 MG TAB PO (21:02)
[2017-05-28] MEDS: clonazePAM 0.5 MG TAB PO (21:03)
[2017-05-29] MEDS: MORPHINE 4 MG/ML 1ML VIAL (J2270) IV ×2 (01:44→08:26)
[2017-05-29] MEDS: PERCOCET 5MG/325MG TAB PO ×2 (04:12→11:36)
[2017-05-29] MEDS: CHLORHEXIDINE ORAL RINSE 0.12%/15ML 120ML BOTTLE SSP ×2 (05:46→14:16)
[2017-05-29 06:11] LABS: BASO % 0.5 % (0.0-1.0); EOS # 0.1 10^3/uL (0.0-0.50); EOS % 1.1 % (0.0-3.0); HEMATOCRIT 39.1 % (42.0-52.0); IMMATURE GRANULOCYTE % 0.3 % (0-3.0); LYMPH # 1.1 10^3/uL (1.5-4.5); LYMPH % 17.2 % (24.0-44.0); MEAN CORPUSCULAR HEMOGLOBIN 27.1 pg (27.0-33.0); MEAN CORPUSCULAR HGB CONC 32.7 g/dl (32.0-36.5); MEAN CORPUSCULAR VOLUME 82.7 fl (80.0-96.0); MONO # 0.7 10^3/uL (0.0-0.8); MONO % 10.4 % (0.0-5.0); NEUTROPHILS # 4.6 10^3/uL (1.8-7.7); NEUTROPHILS % 70.5 % (36.0-66.0); PLATELET COUNT, AUTOMATED 210 10^3/uL (150-450); RED BLOOD COUNT 4.73 10^6/uL (4.30-6.10); RED CELL DISTRIBUTION WIDTH 12.9 % (11.5-14.5); WHITE BLOOD COUNT 6.6 10^3/uL (4.0-10.0)
[2017-05-29 06:17] LABS: HEMOGLOBIN 12.8 g/dl (14.0-18.0)
[2017-05-29 06:25] LABS: ANION GAP 6 MEQ/L (8-16); BLOOD UREA NITROGEN 15 MG/DL (7-18); CALCIUM LEVEL 8.6 MG/DL (8.8-10.2); CARBON DIOXIDE LEVEL 28 MEQ/L (21-32); CHLORIDE LEVEL 106 MEQ/L (98-107); CREATININE FOR GFR 0.89 MG/DL (0.70-1.30); GLOMERULAR FILTRATION RATE > 60.0 (>49); GLUCOSE, FASTING 102 MG/DL (70-100); POTASSIUM SERUM 3.9 MEQ/L (3.5-5.1); SODIUM LEVEL 140 MEQ/L (136-145)
[2017-05-29] MEDS: dexameTHASONE 4 MG/ML 1ML VIAL (J1100) IV (08:25)
[2017-05-29] MEDS: SERTRALINE HCL 50 MG TAB PO (08:26)
[2017-05-29] MEDS: GABAPENTIN 400 MG CAP PO ×2 (08:26→16:34)
[2017-05-29] MEDS: cloNIDine 0.1 MG TAB PO (08:26)
[2017-05-29] MEDS: CARISOPRODOL 350 MG TAB PO (08:26)
[2017-05-29] MEDS: MOXIFLOXACIN 400 MG TAB PO (16:36)
[2017-05-30 13:02] LABS: BEDSIDE GLUCOSE 123 MG/DL (80-115)
[2017-05-31 01:48] LABS: BEDSIDE GLUCOSE 94 MG/DL (80-115)
== END 2017-05-29 18:00 | disposition home or self-care (01) ==
LOC: M ED 08:37 → M ED INP 10:42 → M MS5PR 14:10
DX: K12.2 Cellulitis and abscess of mouth (principal); Z98.818 Other dental procedure status; R22.1 Localized swelling, mass and lump, neck; I10 Essential (primary) hypertension; E78.5 Hyperlipidemia, unspecified; E11.9 Type 2 diabetes mellitus without complications; M54.9 Dorsalgia, unspecified; G89.29 Other chronic pain; Z79.899 Other long term (current) drug therapy; Z79.2 Long term (current) use of antibiotics; Z79.01 Long term (current) use of anticoagulants; Z79.84 Long term (current) use of oral hypoglycemic drugs; Z96.641 Presence of right artificial hip joint; Z98.1 Arthrodesis status; Z88.0 Allergy status to penicillin; Z88.2 Allergy status to sulfonamides; Z88.1 Allergy status to other antibiotic agents
CPT/HCPCS: 41005

== ENCOUNTER → 2020-06-22 | Outpatient (REF) | payer MEDICARE, OTHER ==
[~2020-06-22] MED LIST changes: -/CLON1TA; -/ESOM40CA; +AMLO10CA22 PO; -ASPI81TA85 PO; +ASPI81TA86 PO; -ATOR40TA PO; +ATOR40TA75 PO; +AVEL1TAB3 PO; +CARI1TAB7 PO; +CLEO300C2 PO; +CLIN300I2; +CLON-412; -CLON0.5T PO; +CLON0.5T2 PO; -COUM2.5T11 PO; +COUM2.5T17 PO; -FARX1TAB2 PO; +FARX1TAB3 PO; -GABA600T PO; +GABA600T4 PO; +IBUP1TAB7 PO; -LIDO5DIS36 TD; +LIDO5DIS41 TD; -METF1000 PO; +METF10004 PO; +NEXI1CAP3; +OXYC1TAB23 PO; +PERC5TAB12 PO; -PERC5TAB6 PO; -VICO5TAB16 PO; +VICO5TAB17 PO
[2020-06-22 13:04] LABS: APPEARANCE, URINE CLEAR (CLEAR); BACTERIA, URINE AUTO NEGATIVE (NEGATIVE); BILIRUBIN, URINE AUTO NEGATIVE (NEGATIVE); BLOOD, URINE BLOOD NEGATIVE (NEGATIVE); COLOR, URINE YELLOW (YELLOW); GLUCOSE, URINE (UA) AUTO 3+ mg/dL (NEGATIVE); KETONE, URINE AUTO NEGATIVE (NEGATIVE); LEUKOCYTE ESTERASE, URINE AUTO NEGATIVE (NEGATIVE); MUCUS, URINE SMALL (NEGATIVE); NITRITE, URINE AUTO NEGATIVE (NEGATIVE); PROTEIN, URINE AUTO NEGATIVE (NEGATIVE); RBC, URINE AUTO 0 /HPF (0-3); SPECIFIC GRAVITY URINE AUTO 1.018 (1.002-1.035); SQUAMOUS EPITHELIAL CELL UR AU 0 /HPF (0-6); UROBILINOGEN, URINE AUTO 0.2 mg/dL (0.0-2.0); WBC, URINE AUTO 0 /HPF (0-3)
== END ==
LOC: M LAB REF 12:00
PROVIDERS: ATTEND Internal Medicine
DX: Z01.818 Encounter for other preprocedural examination (principal); N39.0 Urinary tract infection, site not specified

== ENCOUNTER → 2020-10-23 | Outpatient (CLI) | payer MEDICARE, OTHER ==
[~2020-10-23] MED LIST changes: -AMLO10CA22 PO; +AMLO10CA30 PO
[2020-10-23 10:09] LABS: BASO % 0.8 % (0.0-1.0); EOS # 0.1 10^3/uL (0.0-0.5); EOS % 3.3 % (0.0-3.0); HEMATOCRIT 43.2 % (42.0-52.0); LYMPH # 1.4 10^3/uL (1.5-5.0); LYMPH % 36.9 % (24.0-44.0); MEAN CORPUSCULAR HGB CONC 32.4 g/dl (32.0-36.5); MEAN CORPUSCULAR VOLUME 86.4 fl (80.0-96.0); MONO # 0.4 10^3/uL (0.0-0.8); MONO % 10.8 % (2.0-8.0); NEUTROPHILS # 1.8 10^3/uL (1.5-8.5); NEUTROPHILS % 47.9 % (36.0-66.0); PLATELET COUNT, AUTOMATED 213 10^3/uL (150-450); WHITE BLOOD COUNT 3.7 10^3/uL (4.0-10.0)
[2020-10-23 10:41] LABS: ALBUMIN 4.1 GM/DL (3.2-5.2); PERCENT SATURATION 21.6 % (19.7-50.0)
== END ==
LOC: M LAB 08:59
PROVIDERS: ATTEND Orthopaedic Surgery
DX: Z01.818 Encounter for other preprocedural examination (principal); M19.90 Unspecified osteoarthritis, unspecified site; M25.562 Pain in left knee; Z79.899 Other long term (current) drug therapy

== ENCOUNTER → 2020-10-25 | Outpatient (CLI) | payer MEDICARE, OTHER ==
[~2020-10-25] MED LIST changes: +PROHANCE 279.3MG/ML 15ML VIAL As Ordered ONE; +PROHANCE 279.3MG/ML 5ML VIAL As Ordered ONE
== END ==
LOC: M RAD 08:34
PROVIDERS: ATTEND Otolaryngology
DX: H90.5 Unspecified sensorineural hearing loss (principal)
CPT/HCPCS: 70553; A9576

== ENCOUNTER → 2021-01-14 | Outpatient (REF) | payer MEDICARE, OTHER ==
[~2021-01-14] MED LIST changes: +AMLO10CA22 PO; -AMLO10CA30 PO; -PROHANCE 279.3MG/ML 15ML VIAL As Ordered ONE; -PROHANCE 279.3MG/ML 5ML VIAL As Ordered ONE
[2021-01-14 17:37] LABS: PHOSPHORUS LEVEL 3.4 MG/DL (2.5-4.9)
== END ==
LOC: M LAB REF 16:48
PROVIDERS: ATTEND Internal Medicine
DX: R74.8 Abnormal levels of other serum enzymes (principal)

== ENCOUNTER → 2021-10-11 | Outpatient (CLI) | payer MEDICARE, OTHER ==
[~2021-10-11] MED LIST changes: -AMLO10CA22 PO; +AMLO10CA30 PO
== END ==
LOC: M WHC 13:17
PROVIDERS: ATTEND Internal Medicine
DX: E04.1 Nontoxic single thyroid nodule (principal)

== ENCOUNTER → 2023-01-29 | Outpatient (CLI) | payer MEDICARE, OTHER | LOC: M RAD 07:25 | PROVIDERS: ATTEND Pain Medicine Pain Medicine | DX: M54.2 Cervicalgia (principal) ==

== ENCOUNTER 2023-07-27 09:37 | Emergency (ER) | payer MEDICARE, OTHER ==
[~2023-07-27] VITALS: Ht 185.4 cm; Wt 109.5 kg
[2023-07-27] MEDS: diphenhydrAMINE 50MG/ML VIAL IV ONE (10:20)
[2023-07-27] MEDS: dexAMETHasone 20MG/5ML VIAL IV ONE (10:20)
[2023-07-27] MEDS: FAMOTIDINE 20MG/2ML VIAL IVP ONE (10:20)
[2023-07-27 13:30] VITALS: BP 145/79; TEMP 98.3; O2SAT 95
[2023-07-27] MEDS ORDERED: PRED20TA PO (13:33)
[2023-07-27] MEDS ORDERED: CETI10CH PO (13:36)
== END 2023-07-27 13:51 | disposition home or self-care (01) ==
LOC: M ED 09:37
DX: K13.0 Diseases of lips (principal); Z88.0 Allergy status to penicillin; Z88.2 Allergy status to sulfonamides; Z88.8 Allergy status to other drugs, medicaments and biological substances; Z79.899 Other long term (current) drug therapy; Z79.84 Long term (current) use of oral hypoglycemic drugs; Z79.52 Long term (current) use of systemic steroids
CPT/HCPCS: 93041; 94760; 96374; 99285; J1100; J1200

== ENCOUNTER → 2024-01-04 | Outpatient (REF) | payer MEDICARE, OTHER ==
[~2024-01-04] MED LIST changes: +CETI10CH PO; +GABA-1490 PO; -GABA600T4 PO; +PRED20TA PO
== END ==
LOC: M LAB REF 17:47
PROVIDERS: ATTEND Internal Medicine
DX: Z51.81 Encounter for therapeutic drug level monitoring (principal); Z79.891 Long term (current) use of opiate analgesic